=== PATIENT | female | born 1965 | race Caucasian/White ===

== ENCOUNTER 2024-06-24 06:18 | Day surgery (SDC) | payer OTHER ==
[2024-06-21 12:50] VITALS: BMI 18.4
[2024-06-24 10:28] VITALS: TEMP 98
[2024-06-24 10:51] VITALS: RESP 13
[2024-06-24 10:59] VITALS: BP 91/56; PULSE 69
== END 2024-06-24 11:49 | disposition home or self-care (01) ==
LOC: JASU-ENDO 06:18
PROVIDERS: ATTEND Internal Medicine Gastroenterology
PROC: 0DB78ZX Excision of Stomach, Pylorus, Via Natural or Artificial Opening Endoscopic, Diagnostic (ICD-10-PCS; 2024-06-24)
PROC: 0DB68ZX Excision of Stomach, Via Natural or Artificial Opening Endoscopic, Diagnostic (ICD-10-PCS; principal; 2024-06-24 09:30)
DX: K21.9 Gastro-esophageal reflux disease without esophagitis (principal); K31.7 Polyp of stomach and duodenum; K44.9 Diaphragmatic hernia without obstruction or gangrene; K29.50 Unspecified chronic gastritis without bleeding; K31.A11 Gastric intestinal metaplasia without dysplasia, involving the antrum
CPT/HCPCS: 88305-TC; 88342-TC